=== PATIENT | female | born 1980 | race Caucasian/White ===

== ENCOUNTER 2018-04-23 09:05 | Emergency (ER) | payer OTHER ==
[~2018-04-23] VITALS: Ht 163.8 cm; Wt 108.9 kg
--- NOTE | 2018-04-23 09:30 | PHYS DOC ---
Past Medical History Past Medical History: Anxiety Smoking: Cigarettes, 1 Pack Per Day Adult General Chief Complaint Chief Complaint: LOWER EXT PAIN HPI HPI Patient presents to the emergency department for evaluation. She states that this morning she developed some pain in her right calf, somewhat distal to her right calf actually, and became very anxious about the possibility that this might be a blood clot, and this letter into a full blown panic attack. She states she does have a history of panic attacks and anxiety in the past, for which she takes Xanax, although she has not taken any today because she tries to limit her dependence on the medication. She denies any significant shortness of breath or chest pain, denies any dizziness or lightheadedness. She denies any recent travel or immobilization. She is a smoker, but does not use any contraceptives. Her LMP was earlier this month. There are no alleviating or exacerbating factors to her symptoms. Review of Systems Review of Systems Constitutional: Denies fever or chills [] Eyes: Denies change in visual acuity, redness, or eye pain [] HENT: Denies nasal congestion or sore throat [] Respiratory: Denies cough or shortness of breath [] Cardiovascular:The patient denies any shortness of breath, chest pain, palpitations, or orthopnea [] GI: Denies abdominal pain, nausea, vomiting, bloody stools or diarrhea [] : Denies dysuria or hematuria [] Musculoskeletal: Denies back pain or joint pain [] Integument: Denies rash or skin lesions [] Neurologic: Denies headache, focal weakness or sensory changes [] Endocrine: Denies polyuria or polydipsia [] All other systems were reviewed and found to be within normal limits, except as documented in this note. Current Medications Current Medications Current Medications Medications (Trade) Dose Ordered Sig/Kenji Start Time Stop Time Status Last Admin Dose Admin Lorazepam (Ativan) 1 mg 1X ONCE 04/23/18 09:30 04/23/18 09:37 DC 04/23/18 09:38 1 MG Allergies Allergies Allergies Coded Allergies Type Severity Reaction Last Updated Verified No Known Drug Allergies 04/23/18 No Physical Exam Physical Exam PHYSICAL EXAM: CONSTITUTIONAL: Well developed, well nourished HEAD: normocephalic, atraumatic EENT: PERRL, EOMI. Conjunctivae normal color, sclerae non-icteric; moist mucous membranes. NECK: Supple, non-tender; no meningismus. LUNGS: Lungs CTA, breathing even and unlabored. Normal air movement. HEART: Regular rate and rhythm, no murmur CHEST: No deformity; non-tender ABDOMEN: The abdomen is soft, and non-tender, no masses or bruits. EXTREM: Normal ROM; no deformity, there is mild right-sided calf tenderness, without any edema or enlargement of the right leg compared to the left. There is no skin changes, warmth, or erythema. Normal pulses palpable in all extremities. There is no pedal edema. SKIN: No rash; no diaphoresis NEURO: Alert; normal speech and cognition; CN's grossly intact; strength grossly intact without focal deficit. BACK: No CVA TTP. Current Patient Data Vital Signs Vital Signs Date Time Temp Pulse Resp B/P (MAP) Pulse Ox O2 Delivery O2 Flow Rate FiO2 04/23/18 09:37 88 16 99 Room Air 04/23/18 09:18 97.4 173/80 (111) 97.4 Lab Values Laboratory Tests Test 04/23/18 09:24 POC Urine HCG, Qualitative Hcg negative (Negative) EKG EKG [Normal sinus rhythm at a rate of 108 beats for minute, normal axis, normal intervals, there are no acute ischemic ST/T changes.] Radiology/Procedures Radiology/Procedures [PROCEDURE: VENOUS LOWER EXTREMITY RIGHT Right lower extremity venous Doppler dated 04/23/2018. No comparison available. Clinical data indication: Right calf pain. FINDINGS: Grayscale, color-flow and spectral waveform analysis performed to include the deep venous system of the right lower extremity. Normal compressibility, phasicity and augmentation of flow throughout. No filling defects are seen. IMPRESSION:. No evidence of right lower extremity deep vein thrombosis.] Course & Med Decision Making Course & Med Decision Making Pertinent Labs and Imaging studies reviewed. (See chart for details) [10:55 AM:Patient remains stable. I discussed test results, the need for close follow-up, and return precautions. The patient's heart rate is currently in the 70s.] Dragon Disclaimer Dragon Disclaimer This electronic medical record was generated, in whole or in part, using a voice recognition dictation system. Departure Departure Impression: Primary Impression: Calf pain Additional Impression: Anxiety Disposition: 01 HOME, SELF-CARE Condition: STABLE Patient Instructions: Anxiety and Panic Attacks, Leg Cramps Additional Instructions: Follow-up with your primary care provider for further evaluation. Ibuprofen 400-600 mg every 6 hours may help improve your symptoms. Applying a heating pad to the affected area may help improve your symptoms. Problem Qualifiers ROMAN WASHINGTON MD Apr 23, 2018 09:30
[2018-04-23] MEDS: LORazepam 1 MG TABLET PO ONE (09:38)
--- NOTE | 2018-04-23 10:13 | EKG ---
[facility] [address] [place] [address] Test Date: 2018-04-23 Test Time: 09:29:54 Pat Name: JEYSON GREGORY Department: Room: Gender: F Supervisor Taping: : 1980 Requested By: ROMAN WASHINGTON Order Number: [id number] Reading MD: Prasanna Stauffer MD Measurements Intervals [place] Rate: 108 P: 52 PA: 136 QRS: 0 QRSD: 82 T: 40 QT: 334 QTc: 451 Interpretive Statements SINUS TACHYCARDIA Electronically Signed On 04-23-2018 11:32:41 CDT by Prasanna Stauffer MD
--- NOTE | 2018-04-23 10:38 | RAD ---
Right lower extremity venous Doppler dated 04/23/2018. No comparison available. Clinical data indication: Right calf pain. FINDINGS: Grayscale, color-flow and spectral waveform analysis performed to include the deep venous system of the right lower extremity. Normal compressibility, phasicity and augmentation of flow throughout. No filling defects are seen. IMPRESSION:. No evidence of right lower extremity deep vein thrombosis. Electronically signed by: Dallas Bond MD (04/23/2018 10:35 AM) [id number]
[2018-04-23 10:45] VITALS: BP 138/100
== END 2018-04-23 11:05 | disposition home or self-care (01) ==
LOC: ER 09:05
DX: M79.661 Pain in right lower leg (principal); F41.9 Anxiety disorder, unspecified; F17.210 Nicotine dependence, cigarettes, uncomplicated
CPT/HCPCS: 81025; 93005; 93971; 99284-25

== ENCOUNTER 2018-07-29 14:29 | Emergency (ER) | payer OTHER ==
[~2018-07-29] VITALS: Ht 162.6 cm; Wt 112.5 kg
[2018-07-29 14:38] VITALS: BP 157/107
[2018-07-29] MEDS ORDERED: ALPRAZolam 0.25 MG TABLET PO ONE (14:45)
--- NOTE | 2018-07-29 14:53 | PHYS DOC ---
Past Medical History Past Medical History: Anxiety Past Surgical History: Tonsillectomy, Other Additional Past Surgical Histo: breast reduction Alcohol Use: Occasionally Drug Use: None Adult General Chief Complaint Chief Complaint: ANXIETY/PANIC ATTACK HPI HPI Patient is a 37 year old female who presents with a panic attack. She states that she feels that she is having a panic attack and this is what her panic attacks usually fill it. States she has an exit home but came straight to the emergency room. She states that she's been having a panic attack the last 20 minutes. Patient states she smokes cigarettes. Denies drug use or alcohol use. She denies any pain, chest pain, shortness of breath, abdominal pain, nausea, vomiting, dizziness. Review of Systems Review of Systems Constitutional: Denies fever or chills [] Eyes: Denies change in visual acuity, redness, or eye pain [] HENT: Denies nasal congestion or sore throat [] Respiratory: Denies cough or shortness of breath [] Cardiovascular: No additional information not addressed in HPI [] GI: Denies abdominal pain, nausea, vomiting, bloody stools or diarrhea [] : Denies dysuria or hematuria [] Musculoskeletal: Denies back pain or joint pain [] Integument: Denies rash or skin lesions [] Neurologic: Tearful and anxious. Denies headache, focal weakness or sensory changes [] All other systems were reviewed and found to be within normal limits, except as documented in this note. Current Medications Current Medications Current Medications Medications (Trade) Dose Ordered Sig/Kenji Start Time Stop Time Status Last Admin Dose Admin Alprazolam (Xanax) 0.25 mg 1X ONCE 07/29/18 14:45 07/29/18 14:46 DC 07/29/18 14:55 0.25 MG Allergies Allergies Allergies Coded Allergies Type Severity Reaction Last Updated Verified No Known Drug Allergies 04/23/18 No Physical Exam Physical Exam Constitutional: Well developed, well nourished, no acute distress, non-toxic appearance. [] HENT: Normocephalic, atraumatic, bilateral external ears normal, oropharynx moist, no oral exudates, nose normal. [] Eyes: PERRLA, EOMI, conjunctiva normal, no discharge. [] Neck: Normal range of motion, no tenderness, supple, no stridor. [] Cardiovascular:Heart rate regular rhythm, no murmur [] Lungs & Thorax: Bilateral breath sounds clear to auscultation [] Abdomen: Bowel sounds normal, soft, no tenderness, no masses, no pulsatile masses. [] Skin: Warm, dry, no erythema, no rash. [] Back: No tenderness, no CVA tenderness. [] Extremities: No tenderness, no cyanosis, no clubbing, ROM intact, no edema. [] Neurologic: Alert and oriented X 3, normal motor function, normal sensory function, no focal deficits noted. [] Psychologic: Tearful, panic attack, anxious. Affect normal, judgement normal, mood normal. [] Current Patient Data Vital Signs Vital Signs Date Time Temp Pulse Resp B/P (MAP) Pulse Ox O2 Delivery O2 Flow Rate FiO2 07/29/18 14:38 97.9 111 16 157/107 (124) 99 Room Air 97.9 EKG EKG [] Radiology/Procedures Radiology/Procedures [] Course & Med Decision Making Course & Med Decision Making Patient is a 37 year old female who presents with a panic attack. She states that she feels that she is having a panic attack and this is what her panic attacks usually fill it. States she has an exit home but came straight to the emergency room. She states that she's been having a panic attack the last 20 minutes. Patient states she smokes cigarettes. Denies drug use or alcohol use. She denies any pain, chest pain, shortness of breath, abdominal pain, nausea, vomiting, dizziness. Patient is given Xanax 0.25mg by mouth in the ED. Patient is to go straight until she is feeling better. Patient is alert and oriented. Skin pink warm and dry. She is tearful. Lungs are clear to auscultation in all lobes. Heart rate regular without murmur. She denies any SI or HI or depression. Patient is stable and no distress. Dragon Disclaimer [email or web address] Disclaimer This electronic medical record was generated, in whole or in part, using a voice recognition dictation system. Departure Departure Impression: Primary Impression: Anxiety Disposition: 01 HOME, SELF-CARE Condition: STABLE Referrals: UNKNOWN PCP NAME (PCP) Patient Instructions: Anxiety and Panic Attacks Additional Instructions: Follow-up with her primary care doctor. Go straight home. Attending Signature Attending Signature I have reviewed the PA/CLOTH EXAMINER's note and plan of care. I was available for consultation as needed during the patient's visit in the emergency department. I agree with the clinical impression, plan, and disposition. MARIA GUY APRN Jul 29, 2018 14:53 ALEC ESCOBEDO DO Jul 29, 2018 22:38
== END 2018-07-29 15:06 | disposition home or self-care (01) ==
LOC: ER 14:29
DX: F41.9 Anxiety disorder, unspecified (principal); F17.210 Nicotine dependence, cigarettes, uncomplicated
CPT/HCPCS: 99284